=== PATIENT | male | born 1975 | race Caucasian/White ===

== ENCOUNTER 2017-11-15 19:38 | Emergency (ER) | payer MEDICARE, MEDICAID ==
[~2017-11-15] VITALS: Ht 172.7 cm; Wt 88.4 kg
[2017-11-15] MEDS ORDERED: OXYCODONE15 MG PO (20:01)
[2017-11-15] MEDS ORDERED: GABAPENTIN400 M2 PO (20:02)
[2017-11-15] MEDS ORDERED: DEPAKOTE500 MG PO (20:02)
[2017-11-15] MEDS ORDERED: TENORMIN PO (20:02)
[2017-11-15] MEDS ORDERED: LEVOTHYROXINE (20:03)
[2017-11-15 20:46] LABS: INFLUENZA A NONE DETECTED (NONE DETECT); INFLUENZA B NONE DETECTED (NONE DETECT)
[2017-11-15] MEDS ORDERED: ZPAK PO (20:53)
[2017-11-15 21:13] VITALS: BP 162/92
== END 2017-11-15 21:15 | disposition home or self-care (01) ==
LOC: ED 19:38
DX: J20.8 Acute bronchitis due to other specified organisms (principal); I10 Essential (primary) hypertension; G40.909 Epilepsy, unspecified, not intractable, without status epilepticus; F41.9 Anxiety disorder, unspecified; G89.4 Chronic pain syndrome

== ENCOUNTER 2018-05-29 12:59 | Emergency (ER) | payer MEDICARE, MEDICAID ==
[~2018-05-29] VITALS: Ht 172.7 cm; Wt 86.4 kg
[~2018-05-29 12:59] MED LIST: DEPAKOTE500 MG PO; GABAPENTIN400 M2 PO; LEVOTHYROXINE; OXYCODONE15 MG PO; TENORMIN PO; ZPAK PO
[2018-05-29 14:16] VITALS: BP 141/86
[2018-05-29] MEDS ORDERED: CLEOCIN300 MG PO (14:22)
== END 2018-05-29 14:35 | disposition home or self-care (01) ==
LOC: ED 12:59
DX: L03.116 Cellulitis of left lower limb (principal)

== ENCOUNTER 2018-07-05 18:13 | Emergency (ER) | payer MEDICARE ==
[~2018-07-05] VITALS: Ht 172.7 cm; Wt 86.0 kg
[~2018-07-05 18:13] MED LIST changes: +CLEOCIN300 MG PO
[2018-07-05] MEDS ORDERED: TERBINAFINE TOP (19:38)
[2018-07-05 19:51] VITALS: BP 150/77
== END 2018-07-05 19:51 | disposition home or self-care (01) ==
LOC: ED 18:13
DX: B35.6 Tinea cruris (principal); I10 Essential (primary) hypertension; G40.909 Epilepsy, unspecified, not intractable, without status epilepticus